=== PATIENT | female | born 1990 | race Caucasian/White ===

== ENCOUNTER → 2016-06-29 | Outpatient (CLI) | payer BC ==
[2016-06-29 11:32] LABS: CH 30.9; CHCM 35.6; HCT 38.7 % (34.0-46.0); HDW 3.15; HGB 13.5 gm/dL (11.4-16.0); MCH 30.6 pg (25.0-35.0); MCV 87.3 fL (80.0-100.0); Mean Platelet Volume 7.1; RBC 4.43 m/uL (3.80-5.40); RDW 13.8 % (11.5-15.5); WBC 11.6 k/uL (3.8-10.6)
[2016-06-29 12:08] LABS: Glucose 81 mg/dL (74-99); Non-African American GFR(MDRD) >60 (>60 ml/min/1.73 sqM)
[2016-06-29 12:38] LABS: Hepatitis B Surface Ag Index 0.06
[2016-07-01 05:11] LABS: HIV-1/HIV-2 Ab Screen NONREAC (NON REAC)
== END | disposition home or self-care (01) ==
LOC: LABWHC1 10:47
PROVIDERS: ATTEND Obstetrics & Gynecology
DX: Z34.01 Encounter for supervision of normal first pregnancy, first trimester (principal); Z3A.00 Weeks of gestation of pregnancy not specified
CPT/HCPCS: 36415; 82565; 82947; 85027; 86762; 86780; 86850; 86900; 86901; 87340; 87389

== ENCOUNTER → 2016-09-20 | Outpatient (CLI) | payer BC | END | disposition home or self-care (01) | LOC: LABWHC1 13:08 | PROVIDERS: ATTEND Obstetrics & Gynecology | DX: Z53.9 Procedure and treatment not carried out, unspecified reason (principal) ==

== ENCOUNTER → 2016-09-25 | Outpatient (CLI) | payer BC ==
[2016-09-25 17:02] LABS: CH 30.5; CHCM 35.4; HCT 35.3 % (34.0-46.0); HDW 3.58; HGB 12.4 gm/dL (11.4-16.0); MCH 30.5 pg (25.0-35.0); MCHC 35.2 g/dL (31.0-37.0); MCV 86.7 fL (80.0-100.0); Mean Platelet Volume 7.4; Poikilocytosis Slight; RBC 4.07 m/uL (3.80-5.40); RDW 14.8 % (11.5-15.5)
== END | disposition home or self-care (01) ==
LOC: LABWHC1 15:41
PROVIDERS: ATTEND Obstetrics & Gynecology
DX: Z34.02 Encounter for supervision of normal first pregnancy, second trimester (principal); Z3A.00 Weeks of gestation of pregnancy not specified
CPT/HCPCS: 36415; 82950; 85027

== ENCOUNTER → 2018-07-01 | Outpatient (CLI) | payer OTHER ==
[2018-07-01 16:41] LABS: HCT 33.4 % (34.0-46.0); HGB 10.9 gm/dL (11.4-16.0); MCH 27.3 pg (25.0-35.0); MCHC 32.5 g/dL (31.0-37.0); Mean Platelet Volume 6.9; Platelet Count 285 k/uL (150-450); Poikilocytosis Slight; RBC 3.98 m/uL (3.80-5.40); RDW 15.3 % (11.5-15.5); WBC 13.2 k/uL (3.8-10.6)
== END ==
LOC: LABWHC1 15:14
PROVIDERS: ATTEND Obstetrics & Gynecology
DX: Z34.82 Encounter for supervision of other normal pregnancy, second trimester (principal); Z3A.00 Weeks of gestation of pregnancy not specified
CPT/HCPCS: 36415; 82950; 85027

== ENCOUNTER → 2018-07-03 | Outpatient (CLI) | payer OTHER ==
[2018-07-03 12:32] LABS: Glucose 3 Hour, Gest 97 mg/dL
== END | disposition home or self-care (01) ==
LOC: LABWHC1 07:49
PROVIDERS: ATTEND Obstetrics & Gynecology
DX: O24.419 Gestational diabetes mellitus in pregnancy, unspecified control (principal); Z3A.00 Weeks of gestation of pregnancy not specified
CPT/HCPCS: 36415; 82951; 82952

== ENCOUNTER 2018-10-08 12:38 | Outpatient (CLI) | payer OTHER ==
[2018-10-08 13:08] VITALS: BP 132/78; PULSE 91; RESP 18; TEMP 99.2
--- NOTE | 2018-10-11 20:24 | P.MSEPDOC ---
Presenting Problems - Arrival Data Date of Arrival on Unit: 10/08/18 Time of Arrival on Unit: 12:50 Mode of Transport: Ambulatory - Complaint OB-Reason for Admission/Chief Complaint: Other Comment: pt arrived c/o irregular contractions since 4 am. pt denies any leaking of fluid or any problems with the Medical History - Information : 2 Para: 1 Term: 1 : 0 Abortions: Spontaneous or Elective: 0 Number of Living Children: 1 - Gestational Age Gestational Age by KAROLINA (wks/days): 40 Weeks and 2 Days Review of Systems - Review of Systems Constitutional: No problems Breast: No problems ENT: No problems Cardiovascular: No problems Respiratory: No problems Gastrointestinal: No problems Genitourinary: No problems Musculoskeletal: No problems Neurological: No problems Skin: No problems Vital Signs - Temperature Temperature: 99.2 F Temperature Source: Oral - Pulse Right Brachial Pulse Rate: 91 Pulse Assessment Method: Automatic Cuff - Respirations Respiratory Rate: 18 Oxygen Delivery Method: Room Air O2 Sat by Pulse Oximetry: 98 - Blood Pressure Right Arm Blood Pressure: 132/78 Blood Pressure Mean: 96 Blood Pressure Source: Automatic Cuff Medical Screen Scoring (Pre) - Cervical Exam Dilation: 1-3 cm = 1 Effacement: More than 50% = 2 Membranes: Intact - Uterine Contractions Frequency: N/A Duration: N/A Intensity: N/A - Maternal Vital Signs Maternal Temperature: N/A Maternal Blood Pressure: N/A Signs of Preeclampsia: N/A Maternal Respirations: N/A - Maternal Trauma Maternal Trauma: N/A - Assessment - Baby A Baseline FHR: 130 Heart Rate - NICHD Category: Category I (Normal) = 0 - Total Score - Baby A Total Score - Baby A: 3 - Total Score - Baby B Total Score - Baby B: 3 - Total Score - Baby C Total Score - Baby C: 3 - Level of Risk - Baby A Level of Risk - Baby A: Low (0-5) - Level of Risk - Baby B Level of Risk - Baby B: Low (0-5) - Level of Risk - Baby C Level of Risk - Baby C: Low (0-5) Medical Screen Scoring (Post) - Assessment - Baby A Heart Rate: 120 Heart Rate - NICHD Category: Category I (Normal) = 0 NST: Reactive Position: N/A Station: N/A - Total Score Total Score - Baby A: 0 - Post Treatment Level of Risk Post Treatment Level of Risk - Baby A: Low (0-5) Physician Notification (Post) - Physician Notified Physician Notified Date: 10/08/18 Physician Notified Time: 14:25 Spoke With: Dr Gleason New Order Received: Yes - Notification Comment Comment: NST reactive. mild irregular contractions. cervix 1 60 percent and posterior membranes intact. pt has an appointment with Dr Gleason tomorrow at 1030 am. May discharge to home Disposition - Disposition OB Disposition: Discharge to home Discharge Date: 10/08/18 Discharge Time: 14:30 I agree with the RN Medical Screening Exam: Yes Risk & Benefit of care provided described in d/c instruction: Yes Diagnosis: FALSE LABOR AT OR AFTER 37 COMPLETED WEEKS OF GESTATION
== END 2018-10-08 14:35 | disposition home or self-care (01) ==
LOC: FBPOP 12:38
PROVIDERS: ATTEND Obstetrics & Gynecology
DX: O47.1 False labor at or after 37 completed weeks of gestation (principal); Z3A.40 40 weeks gestation of pregnancy
CPT/HCPCS: 59025; G0463; 99213

== ENCOUNTER 2018-10-10 05:05 | Inpatient (IN) | payer OTHER ==
[2018-10-10 05:34] VITALS: BMI 45.1
[2018-10-10] MEDS ORDERED: OXYTOCIN 10 UNIT/ML 1 ML VIAL IM PRN (05:34)
[2018-10-10] MEDS ORDERED: METHYLERGONOVINE 0.2 MG/ML 1 ML AMP IM PRN (05:34)
[2018-10-10] MEDS ORDERED: LIDOCAINE 0.5% (PF) 5 MG/ML (50 ML SDV) SQ PRN (05:34)
[2018-10-10] MEDS ORDERED: CARBOPROST TROMETHAMINE 250 MCG/ML 1 ML AMP IM PRN (05:34)
[2018-10-10] MEDS ORDERED: TERBUTALINE 1 MG/ML VIAL SQ PRN (05:34)
[2018-10-10] MEDS ORDERED: OXYTOCIN 30 UNITS/500 ML NS 30 UNIT in SALINE 1 500ML.BAG IV SCH (05:45)
[2018-10-10] MEDS: LACTATED RINGERS 1,000 ML IV SCH ×3 (06:00→07:29)
[2018-10-10 06:07] LABS: Anisocytosis Slight; Basophils % (A) 0 %; Eosinophils # (A) 0.1 k/uL (0-0.7); Eosinophils % (A) 1 %; HCT 35.6 % (34.0-46.0); HGB 11.2 gm/dL (11.4-16.0); Hypochromasia Slight; Lymphocytes # (A) 2.9 k/uL (1.0-4.8); Lymphocytes % (A) 23 %; MCH 24.5 pg (25.0-35.0); MCHC 31.4 g/dL (31.0-37.0); MCV 78.1 fL (80.0-100.0); Mean Platelet Volume 7.3; Microcytosis Slight; Monocytes # (A) 0.5 k/uL (0-1.0); Monocytes % (A) 4 %; Neutrophils # (A) 9.1 k/uL (1.3-7.7); Neutrophils % (A) 72 %; Platelet Count 346 k/uL (150-450); Poikilocytosis Slight; RBC 4.55 m/uL (3.80-5.40); RDW 17.1 % (11.5-15.5); WBC 12.8 k/uL (3.8-10.6)
[2018-10-10] MEDS ORDERED: ROPIVACAINE 5MG/ML 20ML VIAL ONE (06:55)
[2018-10-10] MEDS ORDERED: SODIUM CHLORIDE 0.9% 100 ML BAG ONE (06:55)
[2018-10-10] MEDS ORDERED: fentaNYL (PF) 50 MCG/ML 5 ML AMP ONE (06:55)
[2018-10-10] MEDS ORDERED: SIMETHICONE 80 MG CHEWABLE PO PRN (14:24)
[2018-10-10] MEDS ORDERED: diphenhydrAMINE 50 MG/ML 1 ML VIAL IVP PRN ×2 (14:24)
[2018-10-10] MEDS ORDERED: diphenhydrAMINE 25 MG CAP PO PRN (14:24)
[2018-10-10] MEDS ORDERED: LANOLIN CREAM 5 GM TUBE TOPICAL PRN (14:24)
[2018-10-10] MEDS ORDERED: ACETAMINOPHEN TAB 325 MG TAB PO PRN (14:24)
[2018-10-10] MEDS ORDERED: WITCH HAZEL 1 EACH MED..PAD TOPICAL PRN (14:24)
[2018-10-10] MEDS ORDERED: BENZOCAINE/MENTHOL SPRAY 1 GM/SPRAY AEROSOL TOPICAL PRN (14:24)
[2018-10-10] MEDS ORDERED: HYDROCORTISONE 2.5% RECTAL CREAM 30 GM TUBE RECTAL PRN (14:24)
[2018-10-10] MEDS ORDERED: ZOLPIDEM 5 MG TAB PO PRN (14:24)
[2018-10-10] MEDS ORDERED: diphenhydrAMINE 50 MG CAP PO PRN (14:24)
[2018-10-10] MEDS ORDERED: HYDROcodone/APAP 5-325MG 1 EACH TAB PO PRN (14:24)
[2018-10-10] MEDS ORDERED: IBUPROFEN 600 MG TAB PO PRN (14:24)
--- NOTE | 2018-10-10 14:26 | P.PROBDLV ---
Vaginal Delivery Note - . Vaginal Delivery Note: For a. Progressed to complete and pushing with spontaneous vaginal delivery of a viable female over a secondary perineal laceration. Following delivery of the head anterior posterior shoulders were easily delivered with gentle downward upper traction from left occiput anterior position. Baby was fully delivered mouth nares were bulb suctioned and baby was placed on mother's abdomen where the umbilical cord was allowed to pulsate for 30 seconds prior to clamping and cutting. Nursery personnel was present to assume care. Placenta was then delivered intact. scores were 8 and 9 at one and 5 minutes respectively and weight was 8 lbs. 7 oz. Second-degree midline laceration was then repaired in usual fashion with 3 3-0 Vicryl following 1% Xylocaine for analgesia. Both mother and baby are stable findings delivery.
--- NOTE | 2018-10-10 14:26 | P.HPOB ---
History of Present Illness H&P Date: 10/10/18 Chief Complaint: Intrauterine at term: Spontaneous rupture membranes Ashlie is a 27-year-old at 40 weeks 4 days gestation who arrives following spontaneous rupture membranes in labor niki every 2-3 minutes. Her Precis course has been unremarkable and she is feeling well at this time. Pertinent labs could A+ blood type Rh have been was negative. Rubella was immune. Hepatitis B surface antigen and groupie strep are also negative. Her past medical history is unremarkable. On physical exam vital signs are stable and afebrile. Heart regular, lungs clear, extremities without pain. She was initially dilated to 3 cm 50% effaced and -3 station. There fluid is noted. Category 1 tracing is noted. Assessment intrauterine term. Plan for epidural for analgesia and continued monitoring. Expect spontaneous vaginal delivery. 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; left ovary also removed Past Anesthesia/Blood Transfusion Reactions: No Reported Reaction Past Psychological History: No Psychological Hx Reported Smoking Status: Never smoker Past Alcohol Use History: None Reported Past Drug Use History: None Reported - Past Family History Father Family Medical History: No Reported History Medications and Allergies Home Medications Medication Instructions Recorded Confirmed Type Pnv,Calcium 72/Iron/Folic Acid 1 tab PO DAILY 12/22/16 10/10/18 History [ Plus Tablet] Allergies Allergy/AdvReac Type Severity Reaction Status Date / Time No Known Allergies Allergy Verified 10/10/18 05:25 Exam Osteopathic Statement: *. No significant issues noted on an osteopathic structural exam other than those noted in the History and Physical/Consult. Vital Signs Temp Pulse Resp BP Pulse Ox 10/10/18 05:30 96.4 F L 81 20 135/68 98 Intake and Output 10/09/18 10/10/18 10/10/18 22:59 06:59 14:59 Output Total 400 Balance -400 Output: Urine 400 Straight 400 Other: Weight 122.924 kg Results Result Diagrams: 10/10/18 05:55 Abnormal Lab Results - Last 24 Hours (Table) 10/10/18 Range/Units 05:55 WBC 12.8 H (3.8-10.6) k/uL Hgb 11.2 L (11.4-16.0) gm/dL MCV 78.1 L (80.0-100.0) fL MCH 24.5 L (25.0-35.0) pg RDW 17.1 H (11.5-15.5) % Neutrophils # 9.1 H (1.3-7.7) k/uL
[2018-10-10] MEDS ORDERED: OXYTOCIN 20 UNITS/1000 ML NS 1,000 ML IV SCH (14:30)
[2018-10-10] MEDS: SENNOSIDES-DOCUSATE SODIUM 1 EACH TAB PO SCH (20:06)
[2018-10-10 21:19] VITALS: RESP 18
[2018-10-11 04:27] VITALS: PULSE 79
[2018-10-11] MEDS: SENNOSIDES-DOCUSATE SODIUM 1 EACH TAB PO SCH (09:08)
[2018-10-11 09:10] VITALS: BP 126/80; TEMP 98.6
--- NOTE | 2018-10-11 10:39 | P.DS ---
Providers Date of admission: 10/10/18 05:13 Expected date of discharge: 10/11/18 Attending physician: Kelle Gleason Primary care physician: Stated None Hospital Course: Chronic is doing very well day 1. She is involuting, voiding and tolerating her diet. She voices no complaints. Vital signs are stable and afebrile. Heart regular, lungs clear, extremities without pain. Abdomen soft uterus is firm below the umbilicus and lochia is reported be light. Assessment post day 1. Plan discharged home follow up with Dr. Schwartz in 6 weeks. Discharge instructions thoroughly reviewed and all the questions were answered for her at this time. She is stable for discharge this time. Patient Condition at Discharge: Good Plan - Discharge Summary New Discharge Prescriptions: No Action Pnv,Calcium 72/Iron/Folic Acid [ Plus Tablet] 1 tab PO DAILY Discharge Medication List Pnv,Calcium 72/Iron/Folic Acid [ Plus Tablet] 1 tab PO DAILY 12/22/16 [History] Follow up Appointment(s)/Referral(s): Kelle Gleason DO [Doctor of Osteopathic Medicine] - 6 Weeks Activity/Diet/Wound Care/Special Instructions: No heavy lifting, limit stairs and driving, and pelvic rest. If any high temperatures, heavy bleeding, or severe pain call Discharge Disposition: HOME SELF-CARE
== END 2018-10-11 15:25 | disposition home or self-care (01) | DRG 807 ==
LOC: FBPOP 05:05 → 4FBP 05:13
PROVIDERS: ADMIT Obstetrics & Gynecology; ATTEND Obstetrics & Gynecology
PROC: 3E0R3BZ Introduction of Anesthetic Agent into Spinal Canal, Percutaneous Approach (ICD-10-PCS; principal; 2018-10-10)
PROC: 0KQM0ZZ Repair Perineum Muscle, Open Approach (ICD-10-PCS; principal; 2018-10-10)
PROC: 00HU33Z Insertion of Infusion Device into Spinal Canal, Percutaneous Approach (ICD-10-PCS; principal; 2018-10-10)
PROC: 10E0XZZ Delivery of Products of Conception, External Approach (ICD-10-PCS; principal; 2018-10-10)
DX: O70.1 Second degree perineal laceration during delivery (principal); Z37.0 Single live birth; Z3A.40 40 weeks gestation of pregnancy; Z90.721 Acquired absence of ovaries, unilateral
CPT/HCPCS: 59025; 84112; 85025; 86850; 86900; 86901; 99213